=== PATIENT | male | born 1955 | race Hispanic/Latino ===

== ENCOUNTER 2023-05-18 16:11 | Emergency (ER) | payer SELFPAY ==
[2023-05-18 16:16] VITALS: BP 109/67; PULSE 84; RESP 16; TEMP 36.9; O2SAT 97
--- NOTE | 2023-05-18 18:19 | DI.CT.S_ITS ---
PROCEDURE: CT SOFT TISSUE NECK W CON INDICATIONS: dental infection/facial abscess TECHNIQUE: After the administration of intravenous contrast, 3.0 mm axial sections acquired from the sella to the aortic arch. Additional oblique axial 3.0 mm sections acquired through the pharynx. 3 mm thick coronal and sagittal reformats were generated. For radiation dose reduction, the following was used: automated exposure control. COMPARISON: None. FINDINGS: Image quality: Excellent. There is a heterogeneously enhancing left facial mass measuring 8.6 x 7.0 by 8.2 cm. Superior margin is at the level the temporalis musculature and extends inferiorly to the submental region. It is causing left right midline shift and extends to the base of tongue. Mass extends to the level of the skin surface. There is a moth-eaten appearance of the left mandible extending from the ramus to the anterior midline. Incidental lucencies are noted surrounding multiple teeth bilaterally. These are likely related to dental disease. Ascending thoracic aorta measures 3.6 cm. Upper lungs are clear. Thyroid is demonstrates low-attenuation foci within the right lobe. IMPRESSION: Large heterogeneously enhancing mass causing midline shift of the left face extending to the base of tongue and causing erosion/infiltrative permeative appearance of the left mandible. Overall appearance is highly suggestive of malignancy. Other etiology would represent longstanding infection or inflammation. Dictated by: Mariah Fraser M.D. on 05/18/2023 at 19:49 Approved by: Mariah Fraser M.D. on 05/18/2023 at 19:54
[2023-05-18] MEDS: SODIUM CHLORIDE 0.9% 1,000 ML 1000 ML IV (19:04)
[2023-05-18 19:08] LABS: Add Manual Diff / Slide Review NO; Basophils Absolute Auto 100 /uL (0-100); Basophils Percent Auto 0.5 % (0-2); Eosinophils Absolute Auto 0 /uL (0-450); Eosinophils Percent Auto 0.3 % (2-4); Hematocrit 35.4 % (41-53); Hemoglobin 12.1 g/dL (13.5-17.5); Lymphocytes Absolute Auto 1500 /uL (1100-4500); Lymphocytes Percent Auto 10.3 % (25-40); Mean Corpuscular HGB Conc 34.1 % (30-36); Mean Corpuscular Volume 90.7 fL (80-100); Monocytes Absolute Auto 1200 /uL (0-900); Monocytes Percent Auto 8.2 % (3-14); Neutrophils Absolute Auto 11500 /uL (1500-7000); Neutrophils Percent Auto 80.7 % (50-75); Platelet Count 385 X10^3/uL (150-400); Red Cell Distribution Width 14.4 % (11.6-14.8); White Blood Cell Count 14.2 X10^3/uL (4.5-11.0)
[2023-05-18 19:20] LABS: Alanine Aminotransferase 33 IU/L (<50); Albumin 3.8 g/dL (3.5-5.0); Albumin Globulin Ratio 0.7 (1.0-2.8); Alkaline Phosphatase 102 U/L (38-126); Aspartate Aminotransferase 52 IU/L (17-59); BUN Creatinine Ratio 20.2 (6-22); Bilirubin Total 0.8 mg/dL (0.2-1.3); Blood Urea Nitrogen 23 mg/dL (9-20); Calcium 10.5 mg/dL (8.4-10.2); Carbon Dioxide 34 mmol/L (22-32); Chloride 93 mmol/L (98-107); Estimated Glomerular Filt Rate > 60 mL/min (>60); Globulin 5.4 g/dL (1.7-4.1); Glucose 143 mg/dL (80-110); HEMOLYSIS < 15 (0-50); Potassium 4.6 mmol/L (3.4-5.1); Sodium 133 mmol/L (137-145); Total Protein 9.2 g/dL (6.3-8.2)
[2023-05-18 19:27] VITALS: BP 112/78; PULSE 78; RESP 17; O2SAT 98
--- NOTE | 2023-05-18 19:29 | PC.NURSE ---
Left facial swelling / drainage w/ wound to skin. Family notes 20lb weight loss over 2 months. Multiple dental carries. Denies fever, chills. c/o sob w/ exertion. skin is dry w/ tenting.
[2023-05-18] MEDS: AMPICILLIN/SULBACTAM 3 GM 3 GM in SODIUM CHLORIDE 0.9% 100 ML IV (20:02)
[2023-05-18] MEDS: KETOROLAC 30 MG/ML VIAL 15 MG IV (20:02)
--- NOTE | 2023-05-18 20:10 | ED_ITS ---
HPI - General Adult General Chief complaint: Dental/Oral Stated complaint: Mouth sore Time Seen by Provider: 05/18/23 18:19 History of Present Illness HPI narrative: 67-year-old male presents with family in the chief complaint of occasional fevers at home and facial swelling. He is a former smoker without other known medical history. They 1st noted some swelling on the left side of his face in February and it has been slowly worsening since then but over the past week or so it is rapidly worsened and now is more swollen and painful and has begun draining at times foul-smelling, purulent drainage. He is unable to eat or drink and has lost over 20 lb. He has no trouble swallowing but is unable to open his mouth. He denies any difficulty in breathing. Related Data Allergies Allergy/AdvReac Type Severity Reaction Status Date / Time No Known Drug Allergies Allergy Verified 05/18/23 19:03 Review of Systems Review of Systems Narrative: GENERAL: See HPI HEENT: See HPI RESPIRATORY: Denies dyspnea, cough, wheezing, hemoptysis, sputum. CARDIOVASCULAR: Denies chest pain, palpitations, orthopnea, edema, GASTROINTESTINAL: Denies nausea, vomiting, abdominal pain, diarrhea, constipation, melena. : Denies dysuria, frequency, incontinence, hematuria, urinary retention. MUSCULOSKELETAL: denies weakness, joint pain, or bony pain SKIN: Denies rash, skin lesions, or other NEUROLOGIC: Denies weakness, headache, numbness, change in speech, confusion, seizures, incoordination. PSYCHIATRIC: No concerning psychosocial issues. 12 point review of systems is negative except for those stated above Patient History Social History Smoking Status: Never smoker Smoking Status: Never smoker alcohol intake frequency: holidays/special occasions only Substance Use Type: does not use Exam Narrative Exam Narrative: GENERAL: [67] year old patient appears older than stated age. Thin and ill- appearing HEAD: Atraumatic. Normocephalic. Thin, temporal wasting EYES: Pupils equal round and reactive. Extraocular motions intact. No scleral icterus. No injection or drainage. ENT: Notable swelling to left side of face with erosion of skin and multiple pockets of purulent drainage, patient also has trismus, guarding airway and controlling secretions Nose without bleeding, purulent drainage. Throat without erythema, tonsillar hypertrophy or exudate. Airway patent. NECK: Trachea midline. Non tender CARDIOVASCULAR: Regular rate and rhythm without murmurs, gallops, or rubs. RESPIRATORY: Clear to auscultation. Breath sounds equal bilaterally. No wheezes, rales, or rhonchi. GASTROINTESTINAL: Abdomen soft, non-tender, nondistended. EXTREMITIES: No edema or joint tenderness. BACK: Nontender without deformity or crepitance. No flank tenderness. NEURO: AOx3. SKIN: No rash or erythema of visible areas Initial Vital Signs Initial Vital Signs: Vital Signs Temperature 98.4 F 05/18/23 16:16 Pulse Rate 84 05/18/23 16:16 Respiratory Rate 16 05/18/23 16:16 Blood Pressure 109/67 05/18/23 16:16 Pulse Oximetry 97 05/18/23 16:16 Oxygen Delivery Method Room Air 05/18/23 16:16 Course Orders Ordered: ED Orders 05/18/23 18:19 CT soft tissue neck w con Stat 05/18/23 19:00 Complete Blood Count AUTO DIFF Stat Comprehensive Metabolic Panel Stat Discontinued Medications Sodium Chloride (Normal Saline 0.9%) 1,000 mls @ 1,000 mls/hr IV BOLUS ONE Stop: 05/18/23 19:18 Last Infusion: 05/18/23 20:46 Dose: 0 mls/hr Documented By: Admin: 05/18/23 19:04 Dose: 1,000 mls/hr Documented By: SHANKAR Ampicillin Sodium/Sulbactam (Sodium 3 gm/ Sodium Chloride) 100 mls @ 200 mls/hr IV NOW ONE Stop: 05/18/23 18:20 Last Infusion: 05/18/23 20:45 Dose: 0 mls/hr Documented By: Admin: 05/18/23 20:02 Dose: 200 mls/hr Documented By: SHANKAR Dexamethasone 20 mg/ Sodium (Chloride) 52 mls @ 208 mls/hr IV NOW ONE Stop: 05/18/23 20:59 Last Infusion: 05/18/23 21:24 Dose: 0 mls/hr Documented By: Admin: 05/18/23 21:05 Dose: 208 mls/hr Documented By: BRITTANIE Ketorolac Tromethamine (Ketorolac 30 Mg/Ml Vial) 15 mg IV NOW ONE Stop: 05/18/23 18:20 Last Admin: 05/18/23 20:02 Dose: 15 mg Documented By: KLS Consultations Consultation #1: call to Dr. Mooney ([facility]). recommends discussion with ENT call to Dr. Gallegos ([facility]) recommends discussion with [facility] or [facility] call to [facility] at [facility]. Recommend discussion with ENT call to ENT at [facility]. Recommend transfer to [facility] given complexity call to [facility] at [facility] ([facility]) happy to accept patient in transfer to [facility] ED call to Ambulance for transfer. ALS unit requested for airway monitoring Time: 20:29 Vital Signs Vital signs: Vital Signs - 8 hr 05/18/23 16:16 05/18/23 19:27 Temperature 98.4 F Pulse Rate 84 78 Respiratory Rate 16 17 Blood Pressure 109/67 112/78 Pulse Oximetry 97 98 Oxygen Delivery Method Room Air Room Air Medical Decision Making Lab Data 05/18/23 19:00 05/18/23 19:00 Labs: Lab Results 05/18/23 05/18/23 Range/Units 19:00 19:00 WBC 14.2 H (4.5-11.0) X10^3/uL RBC 3.90 L (4.5-5.9) X10^6/uL Hgb 12.1 L (13.5-17.5) g/dL Hct 35.4 L (41-53) % MCV 90.7 (80-100) fL MCH 31.0 (26-34) PG MCHC 34.1 (30-36) % RDW 14.4 (11.6-14.8) % Plt Count 385 (150-400) X10^3/uL Neut % (Auto) 80.7 H (50-75) % Lymph % (Auto) 10.3 L (25-40) % Addison % (Auto) 8.2 (3-14) % Eos % (Auto) 0.3 L (2-4) % Baso % (Auto) 0.5 (0-2) % Neut # (Auto) 67964 H (3697-4102) /uL Lymph # (Auto) 1500 (6272-8739) /uL Addison # (Auto) 1200 H (0-900) /uL Eos # (Auto) 0 (0-450) /uL Baso # (Auto) 100 (0-100) /uL Sodium 133 L (137-145) mmol/L Potassium 4.6 (3.4-5.1) mmol/L Chloride 93 L (98-107) mmol/L Carbon Dioxide 34 H (22-32) mmol/L BUN 23 H (9-20) mg/dL Creatinine 1.14 (0.66-1.25) mg/dL Estimated GFR > 60 (>60) mL/min BUN/Creatinine Ratio 20.2 (6-22) Glucose 143 H (80-110) mg/dL Calcium 10.5 H (8.4-10.2) mg/dL Total Bilirubin 0.8 (0.2-1.3) mg/dL AST 52 (17-59) IU/L ALT 33 (<50) IU/L Alkaline Phosphatase 102 (38-126) U/L Total Protein 9.2 H (6.3-8.2) g/dL Albumin 3.8 (3.5-5.0) g/dL Globulin 5.4 H (1.7-4.1) g/dL Albumin/Globulin Ratio 0.7 L (1.0-2.8) MDM Narrative Medical decision making narrative: 67-year-old male with rapidly worsening facial mass. Over the past week significant worsening swelling, pain, drainage and subjective fever. Inability to tolerate orals with trismus. Patient is handling secretions and guarding airway. Imaging demonstrates 8 cm mass highly concerning for malignancy. Exam suggests a likely bacterial superinfection. Wound has been cultured, patient given fluids, antibiotics, steroids, kept NPO. Requires transfer for further evaluation and treatment.Dr. Gutierrez at [facility] graciously accepts this patient. He and his family understand and agree with the diagnosis and plan. Critical Care Time Critical Care Time Critical Care Time: Yes Total Critical Care Time: 45 Attestation: Critical Care Time [45] minutes: Critical care time is separate from other billable procedures. This critical care time includes consultation with family and other consulting doctors, review of records, and interpretation of data from labs, EKGs, imaging, etc. Discharge Plan Departure Patient Disposition: [facility] Clinical Impression: Mass of face, Malignant neoplasm of oral cavity
[2023-05-18] MEDS: dexAMETHasone 20 MG in SODIUM CHLORIDE 0.9% 50 ML 208 MG IV (21:05)
[2023-05-19 00:58] VITALS: BP 121/73; PULSE 68; RESP 18; O2SAT 99
--- NOTE | 2023-05-19 01:12 | PC.NURSE ---
report given to ALEJANDRA Singh RN
== END 2023-05-19 01:13 | disposition short-term general hospital (02) ==
PROVIDERS: Emergency Provider Emergency Medicine
DX: C06.9 Malignant neoplasm of mouth, unspecified (principal); R22.0 Localized swelling, mass and lump, head; R79.89 Other specified abnormal findings of blood chemistry
CPT/HCPCS: 36415; 70491; 80053; 85025; 96365; 96367; 96375; 99284; 99291; J0295; J1100; J1885; Q9967